=== PATIENT | male | born 2005 | race Caucasian/White ===

== ENCOUNTER 2025-04-23 18:24 | Emergency (ER) | payer OTHER, SELFPAY ==
[2025-04-23 18:32] VITALS: BP 140/76; PULSE 81; RESP 20; TEMP 37.3; O2SAT 99
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
[2025-04-23] MEDS: SILVER SULFADIAZINE 1% CR 50 GM JAR (*BKC) 1 APPLIC TOPICAL (19:05)
== END 2025-04-23 19:11 | disposition home or self-care (01) ==
PROVIDERS: Emergency Provider Nurse Practitioner Family
DX: T25.112A Burn of first degree of left ankle, initial encounter (principal); X16.XXXA Contact with hot heating appliances, radiators and pipes, initial encounter
CPT/HCPCS: 16000; 99203; A9270; G0463

== ENCOUNTER 2025-05-15 18:30 | Emergency (ER) | payer OTHER, SELFPAY ==
--- OUTSIDE RECORDS SUMMARY | 2025-05-15 18:34 | XMS_ITS | Clinical Summary ---
Author Organization [facility] Address [address] [place] [address] Care Team Providers Care Aircraft Communicator Name Role Phone Ghada Jones MD Primary Care Provider [phone] Source Comments [facility],non-owned Affiliates and Associated Physician Practices is amultiple site organization consisting of ambulatory clinics and hospital sitesin [place], [place], [place] and [place]. This disclosure is being madepursuant to the Care Everywhere program and may not contain all information available regarding this patient. Last updated 18.[facility] Allergies No known active allergies Medications * Be aware that medications may not be up to date on this document. Alwaysverify current medications with the patient. cyclobenzaprine (FLEXERIL) 5 MG tablet TAKE 1 TABLET BY MOUTH UP TO EVERY 8 HOURS NEEDED FOR BACK MUSCLE SPASMS. DO NOT USE FOR MORE THAN 3 WEEKS 07/24/2021 Active Active Problems No known active problems Family History Medical History Relation Name Comments Asthma Maternal Grandmother Relation Name Status Comments Maternal Grandmother Social History Tobacco Use Types Packs/Day Years Used Date Smoking Tobacco: Never Smokeless Tobacco: Never Comments:non smoking househo ld Sex and Gender Information Value Date Recorded Sex Assigned at Not on file Legal Sex Male 8:52 AM CDT Gender Identity Not on file Sexual Orientation Not on file Last Filed Vital Signs Vital Sign Reading Time Taken Comments Blood Pressure 110/60 06/16/2019 9:15 AM CDT Pulse 78 06/16/2019 9:09 AM CDT Temperature 36.8 C (98.2 F) 06/16/2019 9:09 AM CDT Respiratory Rate 16 06/16/2019 9:09 AM CDT Oxygen Saturation 98% 06/16/2019 9:09 AM CDT Inhaled Oxygen Concentration - - Weight 62.9 kg (138 lb 10.7 oz) 021 10:30 AM CDT Height 174 cm (5' 8.5) 09/10/2021 10:3 0 AM CDT Body Mass Index 20.78 09/10/2021 10:30 AM CDT Plan of Treatment Health Maintenance Due Date Last Done Comments HIV SCREENING 2018 HPV VACCINE (1 - Male 3-dose series) 2018 MENINGOCOCCAL (Group B) VACC INE SHARED DECISION-MAKING (1 of 2 - Standard) 2019 HEPATITIS C SCREENING 09/26/2021 DTAP/TDAP/TD VACCINES (1 - Tdap) 2022 HEPATITIS B VACCINE (1 of 3 - 19+ 3-dose series) 2022 COVID-19 VACCINE (1 - 2023-2 5 season) 2024 DEPRESSION SCREENING 11/08/2024 INFLUENZA VACCINE (#1) 2025 ZOSTER VACCINE (1 of 2) 2053 HIB VACCINE Aged Out No longer eligi ble based on patient's age to complete this topic MENINGOCOCCAL GROUPS A/C/Y/W VACCINE Aged Out No longer eligible b ased on patient's age to complete this topic PNEUMOCOCCAL VACCINE Aged Out No long er eligible based on patient's age to complete this topic Insurance [employer] CIG[employer] Care Teams Aircraft Communicator Relationship Specialty Start Date End Date Ghada Jones MD [address] [place] [address] [place] [id number] PCP - General Pediatrics 06/16/19
[2025-05-15 18:36] VITALS: BP 133/74; PULSE 74; RESP 18; TEMP 36.9; O2SAT 100
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
[2025-05-15] MEDS: TETANUS,DIPHTHERIA,AC PERTUSSIS ADULT (0.5 ML) BOOSTRIX IM (18:48)
== END 2025-05-15 19:08 | disposition home or self-care (01) ==
DX: S91.331A Puncture wound without foreign body, right foot, initial encounter (principal); W26.8XXA Contact with other sharp object(s), not elsewhere classified, initial encounter; Z23 Encounter for immunization
CPT/HCPCS: 90471; 90715; 99212; G0463